=== PATIENT | male | born 1970 | race African-American/Black ===

== ENCOUNTER 2018-03-01 12:14 | Emergency (ER) | payer MEDICAID ==
[2018-03-01 12:24] VITALS: BP 134/83
--- NOTE | 2018-03-01 12:55 | EDM.PDOC ---
<BellaignaciadomingoNancy jacobo - Last Filed: 03/03/18 22:16> ED HPI GENERAL MEDICAL PROBLEM - General Chief Complaint: Upper Extremity Injury/Pain Stated Complaint: LT SHOULDER PAIN Time Seen by Provider: 03/01/18 12:35 - Related Data Allergies Allergy/AdvReac Type Severity Reaction Status Date / Time No Known Allergies Allergy Verified 03/01/18 12:24 Home Meds: Home Meds Ibuprofen [Ibu] 800 mg PO Q6HR PRN #20 tablet 03/01/18 [Rx] Course - Vital Signs Last Recorded V/S: Last Vital Signs Temp 97.5 F 03/01/18 12:21 Pulse 98 03/01/18 12:21 Resp 18 03/01/18 12:21 BP 134/83 03/01/18 12:21 Pulse Ox 95 03/01/18 12:21 Departure - Departure Time of Disposition: 13:01 Disposition: Home, Self-Care 01 Condition: Fair Clinical Impression: Tendonitis - Discharge Information Prescriptions: Ibuprofen [Ibu] 800 mg PO Q6HR PRN #20 tablet PRN Reason: Pain Instructions: Tendinitis Referrals: PCP,None [Primary Care Provider] - Matthew Wellington PA-C [Physician [employer]] - Forms: ED Department Discharge, ED Return to Work/School Form Additional Instructions: take ibuprofen 800mg PO every 6-8 hours prn pain. Use the sling for pain relief and rest. Preform pendulum arm circles 3 or 4 times a day to prevent frozen shoulder. Ice the shoulder 3-4 times a day for 10-15 minutes. Follow-up with family med if not better in one week. Recommend Matthew Wellington or Dr. Iyer at the [facility]. Call [phone] to schedule with one of them. Please return to the ER should your symptoms change or worsen. <Rita Forrester - Last Filed: 03/04/18 08:16> ED HPI GENERAL MEDICAL PROBLEM - General Source of Information: Reports: Patient History Limitations: Reports: No Limitations - History of Present Illness INITIAL COMMENTS - FREE TEXT/NARRATIVE: 47 yo male c/o gradually worsening L shoulder pain x 5 days. 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 He thought it was just muscle soreness at first but it has progressively gotten worse and is now a sharp pain, worse with forward flexion, relieved with rest. He has not taken any medication for the pain, has been using Epsom salt and warm water with minimal relief. He denies any prior injuries or surgeries to either shoulder. Onset: Gradual Onset Date: 02/25/18 Duration: Getting Worse Location: Reports: Upper Extremity, Left (Anterior Left Shoulder) Quality: Reports: Sharp Severity: Moderate Improves with: Reports: Rest Worsens with: Reports: Movement Associated Symptoms: Reports: No Other Symptoms Left Shoulder Pain Score (Numeric/FACES): 7 Past Medical History - Past Surgical History HEENT Surgical History: Reports: Tonsillectomy Review of Systems - Review of Systems Review Of Systems: See Below Constitutional: Reports: No Symptoms Eyes: Reports: No Symptoms Ears: Reports: No Symptoms Nose: Reports: No Symptoms Mouth/Throat: Reports: No Symptoms Respiratory: Reports: No Symptoms Cardiovascular: Reports: No Symptoms GI/Abdominal: Reports: No Symptoms Musculoskeletal: Reports: Shoulder Pain (Left), Muscle Pain (L shoulder). Denies: Joint Swelling Skin: Reports: No Symptoms Neurological: Reports: No Symptoms. Denies: Numbness, Paresthesia, Tingling, Weakness Psychiatric: Reports: No Symptoms ED EXAM, GENERAL - Physical Exam Exam: See Below Exam Limited By: No Limitations General Appearance: Alert, WD/WN, No Apparent Distress Ears: Hearing Grossly Normal Head: Atraumatic, Normocephalic Neck: Normal Inspection, Supple, Non-Tender, Full Range of Motion Respiratory/Chest: No Respiratory Distress, Lungs Clear, Normal Breath Sounds, No Accessory Muscle Use Cardiovascular: Normal Peripheral Pulses, Regular Rate, Rhythm, No Edema, No Murmur, No Rub Extremities: Normal Inspection, Limited Range of Motion (L shoulder secondary to pain), Other (tender to palpation along the entire anterior aspect of L shoulder, appropriate ROM, slightly decreased secondary to pain, appropriate AROM/PROM, +empty can test, +Wolfe, +neers on left side, negative drop arm test, normal sensation bilaterally) Neurological: Alert, Oriented, Normal Cognition, Normal Gait, No Motor/Sensory Deficits Psychiatric: Normal Affect, Normal Mood Departure - Departure Time of Disposition: 13:01 Condition: Fair
== END 2018-03-01 13:15 | disposition home or self-care (01) ==
LOC: JD.ED 12:14
DX: M75.92 Shoulder lesion, unspecified, left shoulder (principal)
CPT/HCPCS: 99283

== ENCOUNTER 2019-07-15 11:35 | Emergency (ER) | payer SELFPAY ==
[2019-07-15 11:50] VITALS: BP 145/92; PULSE 115
[2019-07-15] MEDS ORDERED: predniSONE 20 MG Tab PO ONE (11:57)
[2019-07-15] MEDS ORDERED: diphenhydrAMINE 50 MG Cap PO ONE (11:58)
[2019-07-15] MEDS ORDERED: Famotidine 20 MG Tab PO ONE (11:58)
--- NOTE | 2019-07-15 11:58 | EDM.PDOC ---
ED HPI GENERAL MEDICAL PROBLEM - General Chief Complaint: Skin Complaint Stated Complaint: ALLERGIC RX Time Seen by Provider: 07/15/19 11:48 Source of Information: Reports: Patient History Limitations: Reports: No Limitations - History of Present Illness INITIAL COMMENTS - FREE TEXT/NARRATIVE: 49-year-old male presents to the ED with generalized urticaria. States he awoke with symptoms yesterday morning and it progressed over the last 24 hours. He has not been on any medications in the last month. He has not been sick either. Most likely therefore this is likely foodborne illness. He he did eat a Parfait at the end of Tuesday evening which contain nuts most likely walnuts. This is felt to be the culprit. He denies any congestion or trouble swallowing. Denies any wheezing or chest pressure discomfort. Onset: Sudden Onset Date: 07/14/19 (Awoke with symptoms yesterday morning which were milder but it progressed to generalized urticaria over the last 24 hours) Duration: Hour(s):, Getting Worse Location: Reports: Generalized Quality: Reports: Other Severity: Moderate (Itching.) Improves with: Reports: None Worsens with: Reports: None Context: Denies: Activity, Exercise, Lifting, Sick Contact, Trauma Associated Symptoms: Reports: Rash. Denies: No Other Symptoms, Confusion, Chest Pain, Cough, cough w sputum, Diaphoresis, Fever/Chills, Headaches, Loss of Appetite, Malaise, Nausea/Vomiting, Seizure, Shortness of Breath, Syncope, Weakness Treatments [employer]: Reports: Other (see below) (None.) - Related Data Allergies Allergy/AdvReac Type Severity Reaction Status Date / Time No Known Allergies Allergy Verified 07/15/19 11:47 Home Meds: Home Meds predniSONE [Prednisone] 20 mg PO ASDIRECTED 16 Days tablet 07/15/19 [Rx] Past Medical History - Past Health History Medical/Surgical History: Denies Medical/Surgical History Musculoskeletal History: Reports: Other (See Below) Other Musculoskeletal History: fractures fibia - Past Surgical History HEENT Surgical History: Reports: Tonsillectomy Social & Family History - Tobacco Use Smoking Status *Q: Current Every Day Smoker Years of Tobacco use: 30 Packs/Tins Daily: 0.5 - Caffeine Use Caffeine Use: Reports: None - Recreational Drug Use Recreational Drug Use: No - Living Situation & Occupation Living situation: Reports: Single Occupation: Employed ED ROS GENERAL - Review of Systems Review Of Systems: See Below Constitutional: Reports: Fatigue (From not sleeping all that well last night.). Denies: Fever, Chills HEENT: Reports: Other (Has some swelling around his eyes.) Respiratory: Denies: Shortness of Breath, Wheezing, Pleuritic Chest Pain Cardiovascular: Reports: No Symptoms Endocrine: Reports: No Symptoms GI/Abdominal: Reports: No Symptoms : Reports: No Symptoms Musculoskeletal: Reports: No Symptoms Skin: Reports: Pruritis, Rash, Urticaria Neurological: Reports: No Symptoms (Starting yesterday morning) Psychiatric: Reports: No Symptoms Hematologic/Lymphatic: Reports: No Symptoms Immunologic: Reports: No Symptoms ED EXAM, SKIN/RASH Exam: See Below Exam Limited By: No Limitations General Appearance: Alert, WD/WN, Mild Distress, Other (Resting tachycardia 1 15 /m temperature is 37 BP 1 4592 sats 100% on room air.) Eye Exam: Bilateral Eye: Normal Inspection, Periorbital Changes (Mild swelling of the left upper eyelid appreciated.) Throat/Mouth: Normal Inspection, Normal Lips, Normal Oropharynx, Other Head: Atraumatic, Normocephalic (Uvula and throat and mouth are normal.) Neck: Normal Inspection, Supple, Non-Tender, Full Range of Motion. No: Lymphadenopathy (L), Lymphadenopathy (R) Respiratory/Chest: No Respiratory Distress, Lungs Clear, Normal Breath Sounds, No Accessory Muscle Use, Chest Non-Tender Cardiovascular: Normal Peripheral Pulses, Regular Rate, Rhythm, No Edema, No Gallop, No Murmur, No Rub Peripheral Pulses: 3+: Carotid (L), Carotid (R), Posterior Tibial (L), Posterior Tibial (R), Dorsalis Pedis (L), Dorsalis Pedis (R) Extremities: Normal Inspection, Normal Range of Motion, Other Neurological: Alert, Oriented (No active synovitis.), CN II-XII Intact, Normal Cognition Psychiatric: Normal Affect, Normal Mood Skin: Warm, Dry, Intact, Normal Color, Rash, Other (Generalized urticaria appreciated particularly in his extremities.) Location, Skin: Generalized Associated features: Warmth Course - Vital Signs Last Recorded V/S: Last Vital Signs Temp 37.0 C 07/15/19 11:47 Pulse 115 H 07/15/19 11:47 Resp 17 07/15/19 11:47 BP 145/92 H 07/15/19 11:47 Pulse Ox 100 07/15/19 11:47 - Orders/Labs/Meds Meds: Medications Discontinued Medications Generic Name Dose Route Start Last Admin Trade Name Andie PRN Reason Stop Dose Admin Diphenhydramine HCl 50 mg 07/15/19 11:58 07/15/19 12:02 Benadryl PO 07/15/19 11:59 50 mg ONETIME ONE Administration Famotidine 20 mg 07/15/19 11:58 07/15/19 12:02 Pepcid PO 07/15/19 11:59 20 mg ONETIME ONE Administration Prednisone 30 mg 07/15/19 11:57 07/15/19 12:02 Prednisone PO 07/15/19 11:58 30 mg ONETIME ONE Administration - Radiology Interpretation Free Text/Narrative:: 49-year-old male presents to the ED with new-onset generalized urticaria. He awoke with some symptoms yesterday morning which progressed over the last 24 hours. They are now involving his scalp face and all of his extremities chest and abdomen. No thing he can think of the that he ate differently was a part of a which contain some knots on the evening of Tuesday, July 13. He has been on no medications. Not been sick to suggest a viral etiology. It is felt that this is likely foodborne allergic response. Treatment will be prednisone 30 mg now. He will then take 20 mg at 1600 and again at bedtime tonight and 20 mg twice a day with breakfast and supper for the next 7 days. Benadryl 50 mg every 6 hours needed for relief of itching or worsening of the rash. Follow-up if not markedly improved in 72 hours time. Departure - Departure Time of Disposition: 12:00 Disposition: Home, Self-Care 01 Condition: Fair Clinical Impression: Urticaria due to food allergy - Discharge Information *PRESCRIPTION DRUG MONITORING PROGRAM REVIEWED*: Not Applicable *COPY OF PRESCRIPTION DRUG MONITORING REPORT IN PATIENT DOMO: Not Applicable Prescriptions: predniSONE [Prednisone] 20 mg PO ASDIRECTED 16 Days tablet Instructions: Hives Referrals: PCP,None [Primary Care Provider] - Forms: ED Department Discharge, ED Return to Work/School Form Additional Instructions: Evaluation the emergency room today in regards to development of generalized urticaria or hives. This started Tuesday morning. This is most likely due to foodborne source or something you've taken in within 24 hours of the development of the hives. Skin determined by you that it may have been a half a that contained nuts most likely walnuts that may have set this allergic reaction. No signs of systemic reaction such as wheezing sore throat or trouble breathing. Treatment is Deltasone 30 mg started in the ED. Take 20 mg tablet at 4 PM today and another tablet before bed tonight. After this it's 1 with breakfast and supper for the next 7 days to bring this under control. Use Benadryl 50 mg every 6 hours as needed for relief of itch and/or swelling. May return to work with no rashes pretty well gone.
== END 2019-07-15 12:28 | disposition home or self-care (01) ==
LOC: JD.ED 11:35
DX: T78.1XXA Other adverse food reactions, not elsewhere classified, initial encounter (principal); L50.0 Allergic urticaria; F17.210 Nicotine dependence, cigarettes, uncomplicated
CPT/HCPCS: 99283; A9270